=== PATIENT | male | born 1950 | race Two or more races ===

== ENCOUNTER 2024-07-07 10:50 | Outpatient (CLI) | payer MEDICARE | END 2024-07-07 23:59 | disposition home or self-care (01) | LOC: RAD 10:50 | PROVIDERS: ATTEND Registered Nurse | DX: M17.12 Unilateral primary osteoarthritis, left knee (principal); M25.462 Effusion, left knee; M25.562 Pain in left knee | CPT/HCPCS: 73564 ==